=== PATIENT | male | born 1975 | race Caucasian/White ===

== ENCOUNTER 2020-09-24 20:30 | Emergency (ER) | payer OTHER ==
--- NOTE | 2020-09-24 22:52 | RAD ---
PA and lateral chest. HISTORY: Cough PA and lateral views were taken of the chest. Patient's taken a poor inspiration. Heart is normal in size. There is no effusion. No acute infiltrates or definitively identified. IMPRESSION: 1. No acute infiltrates. Electronically signed by: Kai Rehman MD (09/24/2020 10:50 PM) [facility]
--- NOTE | 2020-09-24 23:39 | PHYS DOC ---
General Adult EDM: Chief Complaint: COUGH HPI: HPI: ".. I ve been running a fever.. hurt all over.. coughing.. I usually healthy.. but I am just washed out.. like I got the flu.. . I did get a COVID vaccination.. 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 COVID vaccine in June x 2. . No recent travel. No specific ill contacts. 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 Patient normally healthy. No other family are ill. No history immunosuppression. Review of Systems: Review of Systems: Constitutional: History of fever or chills Eyes: Denies change in visual acuity HENT: Denies nasal congestion or sore throat Respiratory: History of cough and wheezing Cardiovascular: Denies chest pain or edema GI: Denies abdominal pain, nausea, vomiting, bloody stools or diarrhea : Denies dysuria Musculoskeletal: Denies back pain or joint pain Integument: Denies rash Neurologic: Denies headache, focal weakness or sensory changes Endocrine: Denies polyuria or polydipsia Lymphatic: Denies swollen glands Psychiatric: Denies depression or anxiety Family History: Family History: Noncontributory Current Medications: Current Meds: See nursing. Allergic to penicillin Allergies: Allergies: Allergies Coded Allergies Type Severity Reaction Last Updated Verified Penicillins Allergy Unknown 09/24/20 Yes Physical Exam: PE: Constitutional: Well developed, well nourished, no acute distress, non-toxic appearance. [] HENT: Normocephalic, atraumatic, bilateral external ears normal, oropharynx moist, no oral exudates, nose swollen turbinates clear rhinorrhea Eyes: PERRLA, EOMI, conjunctiva normal, no discharge. [] Neck: Normal range of motion, no tenderness, supple, no stridor. [] Cardiovascular:Heart rate regular rhythm, no murmur [] Lungs & Thorax: Bilateral breath sounds equal apex with scattered wheezes on auscultation [] Abdomen: Bowel sounds normal, soft, no tenderness, no masses, no pulsatile masses. [] Skin: Warm, dry, no erythema, no rash. [] Back: No tenderness, no CVA tenderness. [] Extremities: No tenderness, no cyanosis, no clubbing, ROM intact, no edema. No cording appreciated Neurologic: Alert and oriented X 3, normal motor function, normal sensory fu nction, no focal deficits noted. [] Psychologic: Affect normal, judgement normal, mood normal. [] EKG: EKG: [] Radiology/Procedures: Radiology/Procedures: [][address] [address] IMAGING REPORT Signed PATIENT: BENJY YAÑEZ DACCOUNT: [id number] : 1975 LOCATION: ER AGE: 44 SEX: M EXAM STATUS: REG ER ORD. PHYSICIAN: AMBER VALENCIA MD REASON: cough PROCEDURE: CHEST PA & LATERAL PA and lateral chest. HISTORY: Cough PA and lateral views were taken of the chest. Patient's taken a poor inspiration. Heart is normal in size. There is no effusion. No acute infiltrates or definitively identified. IMPRESSION: 1. No acute infiltrates. Electronically signed by: Kai Rehman MD (09/24/2020 10:50 PM) [facility] DICTATED AND SIGNED BY: KAI REHMAN MD DATE: 09/24/202248 CC: AMBER VALENCIA MD; EMERGENCY,DEPARTMENT; TRINA PAULA UTILITY INSPECTOR-BC ~MTH0 0 Heart Score: C/O Chest Pain: N/A Risk Factors: Risk Factors: DM, Current or recent (<one month) smoker, HTN, HLP, family history of CAD, obesity. Risk Scores: Score 0 - 3: 2.5% MACE over next 6 weeks - Discharge Home Score 4 - 6: 20.3% MACE over next 6 weeks - Admit for Clinical Observation Score 7 - 10: 72.7% MACE over next 6 weeks - Early Invasive Strategies Course & Med Decision Making: Course & Med Decision Making Pertinent Labs and Imaging studies reviewed. (See chart for details) Patient follow-up Covid testing. Patient use MDI 2 puffs 4 times a day. Patient take Zithromax. 250 mg daily. Take Tylenol and ibuprofen for discomfort and fever. Return if any concerns. Self isolate. Follow-up. Impression: 1. Upper respiratory infection 2. Bronchitis 3. Suspect viral syndrome [] Diana Disclaimer: Diana Disclaimer: This electronic medical record was generated, in whole or in part, using a voice recognition dictation system. Departure Departure: Referrals: TRINA PAULA-DAVID (PCP) Scripts Azithromycin (ZITHROMAX) 250 Mg Tablet 250 MG PO DAILY for ANTI-BIOTIC for 5 Days, #5 TAB 0 Refills Prov: AMBER VALENCIA MD 09/24/20 AMBER VALENCIA MD Sep 24, 2020 23:39
[2020-09-24] MEDS ORDERED: AZIT250T PO (23:49)
[2020-09-25] MEDS ORDERED: ALBUTEROL SULFATE 8GM INHALER. INH ONE
[2020-09-25] MEDS ORDERED: AZITHROMYCIN 250 MG TABLET. PO ONE
[2020-09-25] MEDS ORDERED: predniSONE 10 MG TABLET. PO ONE
[2020-09-25] MEDS ORDERED: ACETAMINOPHEN 500 MG TABLET PO ONE
[2020-09-25 01:30] LABS: INFLUENZA A PATIENT NEGATIVE (NEGATIVE); INFLUENZA B PATIENT NEGATIVE (NEGATIVE)
== END 2020-09-25 03:40 | disposition home or self-care (01) ==
LOC: ER 20:30
DX: J06.9 Acute upper respiratory infection, unspecified (principal); J40 Bronchitis, not specified as acute or chronic; Z20.822 Contact with and (suspected) exposure to COVID-19; Z88.0 Allergy status to penicillin
CPT/HCPCS: 71046; 87070; 87804; 87880; 94640; 99284; C9803; J7512; U0003; 94664